=== PATIENT | male | born 1945 | race Caucasian/White ===

== ENCOUNTER 2024-07-31 16:10 | Emergency (ER) | payer MEDICARE, SELFPAY ==
[2024-07-31 16:12] VITALS: BP 139/88; PULSE 86; RESP 15; TEMP 36.8; O2SAT 100; BMI 34.4
[2024-07-31 18:11] VITALS: PULSE 73; RESP 14; O2SAT 97
--- NOTE | 2024-07-31 18:34 | ED.RN ---
20 fr catheter removed with 20 mL in balloon. New 20 fr placed with urine return, balloon inflated with 10 mL
[2024-07-31] MEDS: oxyCODONE 5 MG Tablet PO (18:43)
--- NOTE | 2024-07-31 19:07 | EX.ED.DYSGE1 ---
HPI <MIRANDA Valero - Last Filed: 07/31/24 22:08> History of Present Illness Chief Complaint: Harvey C/O Narrative Narrative: Patient presenting today due to concerns for his Harvey catheter malfunctioning. He has this in place due to having his prostate removed last Wednesday at [facility] by Dr. Puckett due to prostate cancer history. Today, he was shaving his sandhu and accidentally pulled on his Harvey catheter while standing at the sink, he reports that urine then began leaking around the tube and inside of his underwear. He now presents for evaluation. He denies fevers, chills, abdominal pain, nausea, and vomiting. PFSH <MIRANDA Valero - Last Filed: 07/31/24 22:08> PFSH Medical History no medical history Allergy/AdvReac Type Severity Reaction Status Date / Time No Known Allergies Allergy Verified 07/31/24 16:12 Family History no significant family his Surgical History (Updated 07/31/24 @ 18:43 by Yoselin Ryan) History of rectal surgery History of open heart surgery History of prostate surgery Surgical History no surgical history Social History Smoking Status: Never smoker ROS <MIRANDA Valero - Last Filed: 07/31/24 22:08> ROS ED Constitutional Constitutional ED: Denies chills or fever(s) Cardiovascular Cardiovascular: Denies chest pain Respiratory/Chest Respiratory/Chest: Denies dyspnea Gastrointestinal Gastrointestinal: Denies abdominal pain, nausea or vomiting Genitourinary Genitourinary ED: Denies hematuria Musculoskeletal Musculoskeletal: Denies back pain Integumentary Reports rash Neurologic Neurologic: Denies weakness EXAM <MIRANDA Valero - Last Filed: 07/31/24 22:08> Physical Exam Const Vital Signs: 07/31/24 16:12 07/31/24 18:11 07/31/24 20:00 Temperature 98.2 F Temperature Source Oral Pulse Rate 86 73 70 Respiratory Rate 15 14 14 Blood Pressure 139/88 H Blood Pressure Mean 105 Pulse Ox 100 97 98 Oxygen Delivery Method Room Air Room Air Room Air 07/31/24 20:02 Temperature 98.2 F Temperature Source Pulse Rate 70 Respiratory Rate 14 Blood Pressure 139/88 H Blood Pressure Mean 105 Pulse Ox 98 Oxygen Delivery Method Positive well nourished, well developed and no apparent distress General Appearance ED: well developed HEENT Reports normocephalic and head/scalp atraumatic Mouth ED: Yes moist mucous membranes normal Eyes PERRL and EOMs intact bilaterally Neck full ROM and supple Chest Wall inspection of chest normal Resp normal respiratory effort and clear to auscultation bilaterally Cardio regular rate and regular rhythm GI soft to palpation, non-tender, non-distended and no masses GI Narrative: Multiple laparoscopic incisions without any dehiscence, purulent discharge, warmth, or signs of infection. He does have a erythemic papular rash on his abdomen located around the incisions from where bandages were placed. This is consistent with a contact dermatitis. Narrative: Harvey catheter appears to be in place, however there is leaking of urine from the Harvey catheter tube around the ureteral meatus. Back/Spine normal ROM and normal to inspection Extremity normal to inspection and full ROM Neuro oriented x3, CN's II-XII intact bilaterally, moves all extremities, no focal motor deficits and no sensory deficits noted Sensorium / Orientation: awake and alert Psych mental status grossly normal and thought process normal Skin no rashes or lesions noted and no wounds <Dr. Rosanna Snyder DO - Last Filed: 08/01/24 12:34> Physical Exam Const Vital Signs: 07/31/24 16:12 07/31/24 18:11 07/31/24 20:00 Temperature 98.2 F Temperature Source Oral Pulse Rate 86 73 70 Respiratory Rate 15 14 14 Blood Pressure 139/88 H Blood Pressure Mean 105 Pulse Ox 100 97 98 Oxygen Delivery Method Room Air Room Air Room Air 07/31/24 20:02 Temperature 98.2 F Temperature Source Pulse Rate 70 Respiratory Rate 14 Blood Pressure 139/88 H Blood Pressure Mean 105 Pulse Ox 98 Oxygen Delivery Method SLY <MIRANDA Valero - Last Filed: 07/31/24 22:08> SLY HEART Narrative Medical decision making narrative: Patient presenting today due to concerns for his Harvey catheter functioning. He is otherwise well-appearing. He has this in place after having surgery to remove his prostate last Wednesday by Dr. Puckett at [facility]. Today he was standing at the sink shaving his sandhu when his Harvey catheter accidentally got pulled and urine began leaking around his renal meatus and into his underwear. The nurse was able to remove his Harvey and replaced a new Harvey, he now has flow of urine into the Harvey bag, there does not appear to be any additional urine leaking. UA was obtained, negative for UTI. He was given an oxycodone here due to postoperative pain. Patient discharged home in stable condition. Lab Data Attestation: I reviewed the patient's lab results. Labs: Laboratory Results - last 24 hr 07/31/24 19:38 Urine Color Yellow Urine Clarity Sl. Cloudy Urine pH 6.0 Ur Specific [place] 1.010 Urine Protein 100 H Urine Glucose (UA) Normal Urine Ketones Negative Urine Occult Blood 250 H Urine Nitrite Negative Urine Bilirubin Negative Urine Urobilinogen Normal Ur Leukocyte Esterase 100 H Urine RBC > 100 SEEN Urine WBC 5-10 SEEN Ur Squamous Epith Cells 0 SEEN Urine Bacteria 0 SEEN Urine Mucus 0 SEEN <Dr. Rosanna Snyder, DO - Last Filed: 08/01/24 12:34> MDM MDM Narrative Medical decision making narrative: Patient presenting today due to concerns for his Harvey catheter functioning. He is otherwise well-appearing. He has this in place after having surgery to remove his prostate last Wednesday by Dr. Puckett at [facility]. Today he was standing at the sink shaving his sandhu when his Harvey catheter accidentally got pulled and urine began leaking around his penile meatus and into his underwear. The nurse was able to remove his Harvey and replaced a new Harvey, he now has flow of urine into the Harvey bag, there does not appear to be any additional urine leaking. UA was obtained, negative for UTI. He was given an oxycodone here due to postoperative pain. Patient discharged home in stable condition. I have personally performed a face to face assessment of the patient and have reviewed the THERESE Note. I performed a substantive portion of the visit including all aspects of the following. My brown findings include: History is Patient is a 78-year-old male that 5 days status post laparoscopic total prostatectomy secondary to prostate cancer. He was discharged home with a Harvey catheter. He is had some continued hematuria but it seems to be improving. He is presenting today for urine leakage around his Harvey catheter. He states when he woke up his underwear were soaked in urine and he seems to have urine coming from his penis around the catheter. In addition patient has had some redness on his abdomen after the surgery. Denies any significant discomfort associated with this. States overall he is doing well. No fevers reported. On exam patient is ambulatory and overall well-appearing. Harvey catheter was previously replaced by nursing staff and is now draining appropriately with no further leakage. Abdomen is soft and nontender. He has well-appearing laparoscopic surgical incisions. There is scattered erythema with well-demarcated edges on the abdominal wall most consistent with contact dermatitis. There is no signs of secondary infection. No drainage appreciated. Patient will be discharged home. Harvey catheter exchanged with no further leakage. There was a clot noted by nursing suspect the initial catheter was occluded and leaking because of that. Urinalysis not consistent with infection. Will follow-up with urology later this week for likely Harvey catheter removal. Other additions or changes: [None] Lab Data Labs: Laboratory Results - last 24 hr 07/31/24 19:38 Urine Color Yellow Urine Clarity Sl. Cloudy Urine pH 6.0 Ur Specific [place] 1.010 Urine Protein 100 H Urine Glucose (UA) Normal Urine Ketones Negative Urine Occult Blood 250 H Urine Nitrite Negative Urine Bilirubin Negative Urine Urobilinogen Normal Ur Leukocyte Esterase 100 H Urine RBC > 100 SEEN Urine WBC 5-10 SEEN Ur Squamous Epith Cells 0 SEEN Urine Bacteria 0 SEEN Urine Mucus 0 SEEN Discharge Plan Triage Chief Complaint: Harvey C/O ED Midlevel Provider: Magda Martell ED Provider: Rosanna Snyder Dx/Rx/DC Orders Clinical Impression: Displacement of Harvey catheter Instructions: ED Harvey Catheter, Care Primary Care Provider: Care Physician,No Primary Referrals: Care Physician,No Primary [Primary Care Provider] - Activity Restrictions/Additional Instructions: Follow-up with your urologist. Print Language: Icelandic Disposition Disposition: Home, Self Care Discharge Date/Time: 07/31/24 20:05
[2024-07-31 19:43] LABS: Bacteria 0 SEEN /hpf (None Seen); Mucous, Urine 0 SEEN /hpf (<or=2+); Squamous Epithelial Cells - UA 0 SEEN /hpf (0-5)
[2024-07-31 19:44] LABS: Color, Urine Yellow (Yellow); Glucose, Dipstick Normal (Normal); Ketone-Dipstick Negative (Negative); Leukocyte Esterase-Dipstick 100 /ul (Negative); Nitrite-Dipstick Negative (Negative); Occult Blood-Urine 250 /ul (Negative); Protein-Dipstick 100 mg/dl (Negative); Urine Bilirubin Dipstick Negative (Negative); Urine Clarity Sl. Cloudy (Clear); Urine Urobilinogen Normal (Normal)
[2024-07-31 19:54] LABS: Red Blood Cells-Urine > 100 SEEN /hpf (0-5); White Blood Cells 5-10 SEEN /hpf (0-5)
[2024-07-31 20:00] VITALS: PULSE 70; RESP 14; O2SAT 98
[2024-07-31 20:02] VITALS: BP 139/88; PULSE 70; RESP 14; TEMP 36.8; O2SAT 98
== END 2024-07-31 20:05 | disposition home or self-care (01) ==
PROVIDERS: Physician Assistant; Emergency Provider Emergency Medicine; Visit Provider Emergency Medicine
DX: T83.021A Displacement of indwelling urethral catheter, initial encounter (principal); Y73.1 Therapeutic (nonsurgical) and rehabilitative gastroenterology and urology devices associated with adverse incidents; R21 Rash and other nonspecific skin eruption; Z85.46 Personal history of malignant neoplasm of prostate; Z90.79 Acquired absence of other genital organ(s)
CPT/HCPCS: 51702; 81001; 99283; A4216